=== PATIENT | female | born 1955 | race Caucasian/White ===

== ENCOUNTER 2017-02-06 12:48 | Outpatient (CLI) | payer BC | END 2017-02-06 12:49 | disposition home or self-care (01) | LOC: DI 12:48 | PROVIDERS: ATTEND Physician Assistant Medical | DX: I25.10 Atherosclerotic heart disease of native coronary artery without angina pectoris (principal) | CPT/HCPCS: 93306 ==

== ENCOUNTER 2017-02-08 11:26 | Outpatient (CLI) | payer BC ==
[2017-02-08 19:20] LABS: BASOPHILS # (AUTO) 0.1 10^3/uL (0.0-0.1); BASOPHILS % (AUTO) 0.6 %; EOSINOPHILS # (AUTO) 0.2 10^3/uL (0.0-0.7); EOSINOPHILS % (AUTO) 2.1 %; HCT - HEMATOCRIT 40.9 % (37.0-47.0); HGB - HEMOGLOBIN 13.7 g/dL (12.0-16.0); LYMPHOCYTES # (AUTO) 2.3 10^3/uL (1.5-3.5); LYMPHOCYTES % (AUTO) 21.5 %; MEAN CORPUSCULAR HEMOGLOBIN 30.2 pg (27.0-31.0); MEAN CORPUSCULAR HGB CONC 33.4 g/dL (32.0-36.0); MEAN CORPUSCULAR VOLUME 90.4 fL (81.0-99.0); MONOCYTES # (AUTO) 0.6 10^3/uL (0.0-1.0); MONOCYTES % (AUTO) 5.7 %; NEUTROPHILS # (AUTO) 7.6 10^3/uL (1.5-6.6); NEUTROPHILS % (AUTO) 70.1 %; NUCLEATED RED BLOOD CELLS AUTO 0.1 /100WBC; RED BLOOD COUNT 4.52 10^6/uL (4.20-5.40); RED CELL DISTRIBUTION WIDTH 13.8 % (12.0-15.0); UNCORRECTED WHITE BLOOD COUNT 10.9 x10^3/uL; WHITE BLOOD COUNT 10.9 x10^3/uL (4.8-10.8)
[2017-02-08 19:41] LABS: ALBUMIN/GLOBULIN RATIO 1.5 (1.0-2.2); BUN - BLOOD UREA NITROGEN 16 mg/dL (6-20); CALCIUM 9.4 mg/dL (8.5-10.3); CARBON DIOXIDE - CO2 28 mmol/L (21-32); CHLORIDE 104 mmol/L (101-111); CHOL/HDL RATIO 3.3 (<4.4); CHOLESTEROL 212 mg/dL; CREATININE 0.6 mg/dL (0.4-1.0); GFR - MDRD 102 (>89); GLUCOSE 110 mg/dL (70-100); HDL CHOLESTEROL 64 mg/dL; SODIUM 140 mmol/L (135-145); TOTAL PROTEIN 7.3 g/dL (6.7-8.2); TRIGLYCERIDES 101 mg/dL; VLDL CHOLESTEROL 20 mg/dL
== END 2017-02-08 11:27 | disposition home or self-care (01) ==
LOC: LAB.WCP 11:26
PROVIDERS: ATTEND Physician Assistant Medical
DX: Z51.81 Encounter for therapeutic drug level monitoring (principal)
CPT/HCPCS: 36415; 80053; 80061; 85025

== ENCOUNTER 2018-02-21 16:23 | Emergency (ER) | payer BC, OTHER ==
--- NOTE | 2018-02-21 17:01 | ED Physician Documentation ---
PD HPI HEENT - Stated complaint Stated Complaint: NOSE BLEED - Chief complaint Chief Complaint: Heent - History obtained from History obtained from: Patient - History of Present Illness Timing - onset: How many hours ago (2) Timing - details: Now resolved Location: Nose Similar symptoms before: Has not had sx before - Additional information Additional information: The patient is a 62-year-old female who presents with left anterior nosebleed that started about 2 hours prior to arrival. It stopped spontaneously at one point, but then resumed, prompting her to present to the emergency department. She denies any traumatic injury. She has had intermittent episodes of nose bleeding over the past 3 days. She has no history of nosebleeds prior to that time. She is not on anticoagulant medication. She does report that her nose has been very dry recently. Review of Systems Constitutional: denies: Fever Eyes: denies: Irritation Ears: denies: Ear pain Nose: reports: Epistaxis. denies: Congestion Throat: denies: Sore throat Cardiac: denies: Chest pain / pressure Respiratory: denies: Dyspnea GI: denies: Nausea, Vomiting Neurologic: denies: Headache PD PAST MEDICAL HISTORY - Past Medical History Cardiovascular: Other (V-fib cardiac arrest in 2013.) - Present Medications Home Medications: Ambulatory Orders Medication Instructions Recorded Confirmed No Known Home Medications [No 02/21/18 02/21/18 Known Home Medications] - Allergies Allergies/Adverse Reactions: Allergies Allergy/AdvReac Type Severity Reaction Status Date / Time No Known Drug Allergies Allergy Verified 02/21/18 16:31 - Social History Does the pt smoke?: No Smoking Status: Never smoker Does the pt have substance abuse?: No PD ED PE NORMAL - Vitals Vital signs reviewed: Yes (Borderline hypertension) - General General: Alert and oriented X 3, Well developed/nourished - HEENT HEENT: Atraumatic, EOMI, Ears normal, Pharynx benign, Other (Left anterior epistaxis with bleeding site at anterior nasal septum.) - Neck Neck: No adenopathy - Cardiac Cardiac: RRR - Respiratory Respiratory: No respiratory distress, Clear bilaterally - Derm Derm: No rash - Extremities Extremities: No edema - Neuro Neuro: Alert and oriented X 3, No motor deficit, Normal speech Results - Vitals Vitals: Oxygen O2 Source Room air Procedures - Epistaxis Site: Left, Anterior Preparation: Lidocaine, Clamp / pressure applied Treatment: Silver Nitrate Other: Observed - no bleeding, Pt tolerated well, O2 sat WNL PD MEDICAL DECISION MAKING - ED course Complexity details: reviewed results, re-evaluated patient, considered differential, d/w patient, d/w family ED course: The patient's presentation is significant for left anterior epistaxis. She is not on anticoagulant medication, and there has been no history of trauma. Treatment in the emergency department included silver nitrate cautery after topical anesthetic using 1% lidocaine with epinephrine. The patient was then observed in the emergency department and experienced no further episodes of bleeding. I discussed with her and her the expected course of healing, methods to present further episodes, as well as potentially worrisome signs or symptoms that should prompt reevaluation in the emergency department. - Sepsis Event Vital Signs: Oxygen O2 Source Room air Departure - Departure Disposition: 01 Home, Self Care Clinical Impression: Anterior epistaxis Condition: Stable Instructions: ED Nosebleed Follow-Up: Lyric Melvin MD [Primary Care Provider] - Comments: Avoid aspirin for the next 5 days. Apply antibiotic ointment to your nasal mucosa twice daily. Return to the emergency department if you develop recurrent nasal bleeding, especially but does not stop after applying pressure to the site of your nose for 10-15 minutes. Discharge Date/Time: 02/21/18 17:57
[2018-02-21 17:57] VITALS: BP 132/78
== END 2018-02-21 17:57 | disposition home or self-care (01) ==
LOC: ED 16:23
DX: R04.0 Epistaxis (principal)
CPT/HCPCS: 30901; 99282; 99283

== ENCOUNTER 2018-07-23 12:11 | Outpatient (CLI) | payer BC, OTHER ==
[2018-07-23 18:59] LABS: BASOPHILS # (AUTO) 0.1 10^3/uL (0.0-0.1); BASOPHILS % (AUTO) 0.8 %; EOSINOPHILS # (AUTO) 0.2 10^3/uL (0.0-0.7); EOSINOPHILS % (AUTO) 3.7 %; HGB - HEMOGLOBIN 14.1 g/dL (12.0-16.0); LYMPHOCYTES % (AUTO) 31.5 %; MEAN CORPUSCULAR HEMOGLOBIN 29.6 pg (27.0-31.0); MEAN CORPUSCULAR HGB CONC 32.5 g/dL (32.0-36.0); MEAN CORPUSCULAR VOLUME 91.2 fL (81.0-99.0); MEAN PLATELET VOLUME 9.2 fL (7.9-10.8); MONOCYTES # (AUTO) 0.5 10^3/uL (0.0-1.0); MONOCYTES % (AUTO) 7.1 %; NEUTROPHILS # (AUTO) 3.7 10^3/uL (1.5-6.6); NEUTROPHILS % (AUTO) 56.9 %; PLT - PLATELET COUNT 298 10^3/uL (130-450); RED BLOOD COUNT 4.76 10^6/uL (4.20-5.40); RED CELL DISTRIBUTION WIDTH 13.7 % (12.0-15.0); WHITE BLOOD COUNT 6.5 x10^3/uL (4.8-10.8)
[2018-07-23 19:19] LABS: ALBUMIN 4.3 g/dL (3.2-5.5); ALBUMIN/GLOBULIN RATIO 1.3 (1.0-2.2); ALKALINE PHOSPHATASE 61 IU/L (42-121); ALT ALANINE AMINOTRANSFERASE 16 IU/L (10-60); AST ASPARTATE AMINOTRANSFERASE 21 IU/L (10-42); BILIRUBIN,TOTAL 0.8 mg/dL (0.2-1.0); BUN - BLOOD UREA NITROGEN 11 mg/dL (6-20); CALCIUM 9.2 mg/dL (8.5-10.3); CARBON DIOXIDE - CO2 24 mmol/L (21-32); CHLORIDE 107 mmol/L (101-111); CHOL/HDL RATIO 4.4 (<4.4); CHOLESTEROL 245 mg/dL; CREATININE 0.6 mg/dL (0.4-1.0); GFR - MDRD 102 (>89); GLUCOSE 141 mg/dL (70-100); HB2 TOTAL 15.3 g/dL; HDL CHOLESTEROL 56 mg/dL; HEMOGLOBIN A1C 0.96 g/dL; HEMOGLOBIN A1C % 7.9 % (4.6-6.2); LDL CHOLESTEROL,CALCULATED 163 mg/dL; LDL/HDL RATIO 2.9 (<4.4); SODIUM 137 mmol/L (135-145); TOTAL PROTEIN 7.7 g/dL (6.7-8.2); VLDL CHOLESTEROL 26 mg/dL
== END 2018-07-23 23:59 | disposition home or self-care (01) ==
LOC: LAB.WCP 12:11
PROVIDERS: ATTEND Family Medicine
DX: E78.5 Hyperlipidemia, unspecified (principal); E11.9 Type 2 diabetes mellitus without complications; L65.9 Nonscarring hair loss, unspecified; I25.10 Atherosclerotic heart disease of native coronary artery without angina pectoris
CPT/HCPCS: 36415; 80053; 80061; 82043; 83036; 83721; 84443; 85025

== ENCOUNTER 2019-03-26 13:31 | Outpatient (CLI) | payer BC, OTHER ==
--- NOTE | 2019-03-27 08:43 | DEXA Report ---
Reason: OSTEOPOROSIS Procedure Date: 03/26/2019 Accession Number: [id number] / [id number] Procedure: DEX - Dexa Spine and/or Hip CPT Code: FULL RESULT: EXAM: Dexa Spine and/or Hip DATE: 03/26/2019 2:35 PM CLINICAL HISTORY: OSTEOPOROSIS TECHNIQUE: Dual energy x-ray absorptiometry (DXA) was performed on a [employer] System. Regions measured are the AP Spine, femoral neck, and if needed forearm. COMPARISON: None. In accordance with the International Society for Clinical Densitometry (ISCD) guidelines, data from previous exams may be reanalyzed using current recommendations and techniques. This is done to allow a more accurate basis for comparison with the current study. FINDINGS: The data for the lumbar spine is as follows: BMD (g/cm/cm) T-SCORE Z-SCORE REGION L1 0.939 -1.6 -0.3 L2 0.935 -2.2 -0.9 L3 0.961 -2.0 -0.7 L4 0.972 -1.9 -0.6 TOTAL 0.954 -1.9 -0.6 NOTE: All evaluable vertebrae are used for classification The data for the hip is as follows: BMD (g/cm/cm) T-SCORE Z-SCORE REGION Neck 0.700 -2.4 -1.1 TOTAL 0.767 -1.9 -0.9 NOTE: The femoral neck or total proximal femur, whichever is lowest, is used for classification. IMPRESSION: THE WHO CLASSIFICATION BASED ON THE INTERNATIONAL REFERENCE STANDARD IS OSTEOPENIA. THE FRACTURE RISK IS INCREASED. RECOMMENDATION: Patients with diagnosis of osteoporosis or osteopenia should have regular bone mineral density assessment. For those eligible for Medicare, routine testing is allowed once every 2 years. Testing frequency can be increased for patients who have rapidly progressing disease or for those who are receiving medical therapy to restore bone mass. COMMENT: World Health Organization (WHO) definitions for osteoporosis and osteopenia: NORMAL BMD: T-score at -1.0 or higher, fracture risk is low OSTEOPENIA BMD: T-score between -1.0 and -2.5, fracture risk is increased. OSTEOPOROSIS BMD: T-score at -2.5 or lower, fracture risk is high. National Osteoporosis Foundation recommends: 1. Obtain adequate dietary calcium (at least 1200 mg per day) and vitamin D (400-800 international units per day). 2. Participate, as appropriate, in regular weightbearing and muscle-strengthening exercise. 3. Avoid tobacco use and reduce alcohol and caffeine intake. 4. For more detailed information see the website at www.NOF.org.
== END 2019-03-26 13:32 | disposition home or self-care (01) ==
LOC: DI 13:31
PROVIDERS: ATTEND Family Medicine
DX: M85.89 Other specified disorders of bone density and structure, multiple sites (principal)
CPT/HCPCS: 77080

== ENCOUNTER 2019-04-02 08:00 | Outpatient (CLI) | payer BC, OTHER ==
[2019-04-02 13:19] LABS: HB2 TOTAL 14.3 g/dL; HEMOGLOBIN A1C 0.94 g/dL; HEMOGLOBIN A1C % 8.2 % (4.6-6.2)
[2019-04-02 13:25] LABS: ALBUMIN 4.1 g/dL (3.2-5.5); ALBUMIN/GLOBULIN RATIO 1.2 (1.0-2.2); ALKALINE PHOSPHATASE 58 IU/L (42-121); ALT ALANINE AMINOTRANSFERASE 15 IU/L (10-60); AST ASPARTATE AMINOTRANSFERASE 17 IU/L (10-42); BILIRUBIN,TOTAL 0.6 mg/dL (0.2-1.0); BUN - BLOOD UREA NITROGEN 10 mg/dL (6-20); CALCIUM 9.3 mg/dL (8.5-10.3); CARBON DIOXIDE - CO2 23 mmol/L (21-32); CHLORIDE 108 mmol/L (101-111); CHOL/HDL RATIO 3.8 (<4.4); CHOLESTEROL 206 mg/dL; CREATININE 0.6 mg/dL (0.4-1.0); GFR - MDRD 102 (>89); GLUCOSE 145 mg/dL (70-100); HDL CHOLESTEROL 54 mg/dL; LDL CHOLESTEROL,CALCULATED 138 mg/dL; LDL/HDL RATIO 2.6 (<4.4); SODIUM 140 mmol/L (135-145); TOTAL PROTEIN 7.5 g/dL (6.7-8.2); VLDL CHOLESTEROL 14 mg/dL
[2019-04-02 13:26] LABS: MICROALBUM/CREATININE RATIO,UR 5.1 ug/mg (<30.0); MICROALBUMIN,URINE 0.4 mg/dL (0-300.0)
== END 2019-04-02 23:59 | disposition home or self-care (01) ==
LOC: LAB.WCP 08:00
PROVIDERS: ATTEND Family Medicine
DX: E78.5 Hyperlipidemia, unspecified (principal); E11.9 Type 2 diabetes mellitus without complications; R41.3 Other amnesia
CPT/HCPCS: 36415; 80053; 80061; 82043; 82570; 83036; 83721; 84443

== ENCOUNTER 2021-09-29 15:23 | Outpatient (CLI) | payer BC, OTHER ==
--- NOTE | 2021-10-02 09:06 | DEXA Report ---
PROCEDURE: Dexa Spine and/or Hip INDICATIONS: POST MENOPAUSAL TECHNIQUE: Dual energy x-ray absorptiometry (DXA) was performed on a [employer] System. Regions measur ed are the AP Spine, femoral neck, and if needed forearm. COMPARISON: 03/26/2019. FINDINGS: L1 BMD: 0.917 L1 TScore: -1.8 L1 ZScore: -0.2 Lumbar Spine: Bone Mineral Density 0.954 g/cm/cm,T score -1.9, osteopenia. Unchanged from prior T score value of -1.9. Left Hip: Bone Mineral Density 0.783 g/cm/cm,T score -1.8, osteopenia. Similar to prior T score value of -1.9. Left Femoral Neck: Bone Mineral Density 0.725 g/cm/cm, T score -2.3, osteopenia. Similar to prior T score value of -2.4 . (T score greater or equal to -1.0: NORMAL) (T score from -1.1 to -2.4: OSTEOPENIA) (T score less than or equal to -2.5 to: OSTEOPOROSIS) Impression: 1. Osteopenia within the lumbar spine and left hip appear similar in density to the prior study. Patients with diagnosis of osteoporosis or osteopenia should have regular bone mineral density assess ment. For those eligible for Medicare, routine testing is allowed once every 2 years. Testing frequ ency can be increased for patients who have rapidly progressing disease or for those who are receivin g medical therapy to restore bone mass. Reviewed by: Johnathan Naylor MD on 10/02/2021 9:05 AM [facility] Approved by: Johnathan Naylor MD on 10/02/2021 9:05 AM PST Station ID: [id number]
== END 2021-09-29 15:24 | disposition home or self-care (01) ==
LOC: DI 15:23
PROVIDERS: ATTEND Student in an Organized Health Care Education/Training Program
DX: Z78.0 Asymptomatic menopausal state (principal); M85.89 Other specified disorders of bone density and structure, multiple sites

== ENCOUNTER 2021-10-31 10:33 | Outpatient (CLI) | payer BC, OTHER ==
--- NOTE | 2021-11-01 08:16 | Mammography Report ---
BILATERAL DIGITAL SCREENING MAMMOGRAM 3D/2D: 10/31/2021 CLINICAL: Routine screening. Comparison is made to exams dated: 03/26/2019 mammogram and 01/25/2015 mammogram - [facility]. There are scattered fibroglandular elements in both breasts. No significant masses, calcifications, or other findings are seen in either breast. There has been no significant interval change. IMPRESSION: NEGATIVE There is no mammographic evidence of malignancy. A 1 year screening mammogram is recommended. This exam was interpreted at Station ID: [id number]. NOTE: For mammograms, a report in lay terms will be sent to the patient. Approximately 15% of breast malignancies will not be visualized mammographically. In the management of a palpable breast mass, a negative mammogram must not discourage biopsy of a clinically suspicious lesion. Electronically Signed By: Johnathan Naylor M.D. ddp/penrad:10/31/2021 14:40:16 ACR BI-RADS Category 1: Negative 3341F PARENCHYMAL PATTERN: (A) - The breast(s) demonstrate(s) scattered fibroglandular densities. BI-RADS CATEGORY: (1) - 1 RECOMMENDATION: (ANNUAL) - Recommend routine annual screening mammography. [id number] 1 year screening LATERALITY: (B)
== END 2021-10-31 10:34 | disposition home or self-care (01) ==
LOC: DI.N 10:33
PROVIDERS: ATTEND Student in an Organized Health Care Education/Training Program
DX: Z12.31 Encounter for screening mammogram for malignant neoplasm of breast (principal)

== ENCOUNTER 2022-03-15 10:52 | Emergency (ER) | payer BC, OTHER ==
[2022-03-15 11:07] VITALS: BP 141/84
--- NOTE | 2022-03-15 11:22 | XRAY Report ---
PROCEDURE: Ankle 3 View LT INDICATIONS: Trauma TECHNIQUE: 3 views of the ankle were acquired. COMPARISON: None FINDINGS: Bones: Linear lucency obliquely traverses the distal fibula. Ankle mortise is normally aligned. No s uspicious bony lesions. Soft tissues: No tibiotalar joint effusion. Achilles tendon appears normal. IMPRESSION: Mildly displaced distal fibular fracture. Reviewed by: Joann Chavez MD on 03/15/2022 11:21 AM PDT Approved by: Joann Chavez MD on 03/15/2022 11:21 AM PDT Station ID: [id number]
--- NOTE | 2022-03-15 12:12 | ED Physician Documentation ---
History of Present Illness - Stated complaint Stated Complaint: GLF/ANKLE INJ - Chief complaint Chief Complaint: Trauma Ext - Additonal information Additional information: 66-year-old female presents emergency department for evaluation of left lateral ankle pain. Was working in her yard when she stepped off a concrete curb sustaining an inversion injury. Now painful and difficulty bearing weight. No history of previous injury. No other associated injury today Review of Systems Constitutional: reports: Reviewed and negative Nose: reports: Reviewed and negative Cardiac: reports: Reviewed and negative Respiratory: reports: Reviewed and negative Musculoskeletal: reports: Extremity pain Neurologic: reports: Reviewed and negative PD PAST MEDICAL HISTORY - Past Medical History Cardiovascular: Other (V-fib cardiac arrest in 2013.) - Present Medications Home Medications: Ambulatory Orders Medication Instructions Recorded Confirmed HYDROcod/ACETAM 5/325 [[place] 5/325] 1 tablet PO BID PRN #10 tablet 03/15/22 - Allergies Allergies/Adverse Reactions: Allergies Allergy/AdvReac Type Severity Reaction Status Date / Time No Known Drug Allergies Allergy Verified 03/15/22 11:06 - Social History Does the pt smoke?: No Smoking Status: Never smoker Does the pt have substance abuse?: No PD ED PE EXPANDED - General General: Alert, No acute distress, Well developed/nourished - Extremities Extremities: Left ankle (Tenderness of the distal fibula. Mild swelling no deformity. No tenderness medially or on the dorsum of the foot. No Achilles pain. Reduced range of motion secondary to pain. 2+ DP pulse) Results - Vitals Vitals: Vital Signs - 24 hr 03/15/22 11:01 Temperature 36.5 C Heart Rate 66 Respiratory 14 Rate Blood Pressure 141/84 H O2 Saturation 98 Oxygen O2 Source Room air - Rads (name of study) left ankle Radiology: Final report received (Mildly displaced distal fibular fracture) PD MEDICAL DECISION MAKING - ED course Complexity details: considered differential, d/w patient ED course: 66-year-old female presents emergency department for evaluation of left ankle pain after inversion injury today. She has moderate tenderness on the distal lateral malleoli are area. X-ray confirms a mildly displaced fibular fracture. She is placed in a stirrup splint. Crutches. Recommend ibuprofen limited amount of hydrocodone for pain. Emergent worrisome return precautions were discussed. Advised that she should have follow-up with orthopedics at which time splinting can likely be removed and placed in a walker boot. I examined the leg post splinting CMST is preserved. Patient feels comfortable in splint I am prescribing a short course of short-acting opioid pain medication for this patient. I have reviewed the patients [employer] and no concerning findings were noted. I have discussed that the opioids are for short term therapy only, and will not be refilled from the ED. Departure - Departure Disposition: 01 Home, Self Care Clinical Impression: Fracture of distal end of fibula Qualifiers: Encounter type: initial encounter Fracture type: closed Fracture morphology: unspecified fracture morphology Laterality: left Qualified Code(s): S82.832A - Other fracture of upper and lower end of left fibula, initial encounter for closed fracture Condition: Stable Record reviewed to determine appropriate education?: Yes Instructions: ED Fx Lower Ext, ED Cast Care Fiberglass Follow-Up: Vince Griffin MD [Provider Admit Priv/Credential] - Prescriptions: HYDROcod/ACETAM 5/325 [[place] 5/325] 1 tablet PO BID PRN #10 tablet PRN Reason: Pain Comments: Ximena unfortunately when you twisted your ankle this morning you did fracture the distal end of your fibula. These types of fractures are almost universally managed nonoperatively. Initially we placed the fracture in a splint to stabilize and then follow-up with orthopedics they can make the determination of if you can be placed into a walking boot. Your fiberglass splint cannot get wet so you must use a bag over the leg when showering. In general use the crutches for ambulation. I would like you to take 600 mg of ibuprofen with food 2-3 times a day for discomfort. For more severe pain I prescribing a limited amount of [place]. This prescription has been sent to [facility]. In order to be seen by orthopedic physicians in follow-up, your primary care provider will need to make a referral. I have given you the name of our local orthopedic physician who can typically see patients such as yourself and follow- up. You have any concerns that the splint is too tight, you have numbness or ting ling in your foot, unexplained fevers or severe pain then please return to the ER for repeat evaluation. I am prescribing a short course of narcotic pain medication for you. These are potentially dangerous and addictive medications that should be used carefully. These medications may constipate you. Take an iooi-mlw-halfhfg stool softener (docusate) twice daily with plenty of water while taking these medications. If you go 24 hours without a bowel movement, take qhqa-lts-wuxzjdo miralax, per package instructions. Do not drink or drive while taking these medications. If you received narcotic or sedating medications while in the emergency department, do not drive for 24 hours. Store this medication in a safe, secure place and out of reach of children. It is a violation of federal law to give or sell this medication to another person or to use in a manner other than prescribed. The ED will not refill narcotic prescriptions, including prescriptions lost or stolen. To dispose of unwanted medications: 1. [facility] at [address] in [place] has a medication drop box. They accept prescription medications (in pill form) Saturday through Saturday 9:00 a.m. to 5:00 p.m. 2. The [facility] [employer] accepts prescription medications (in pill form only) for disposal year round. Call for more information. 3. Contact the [facility] for the next [facility] sponsored prescription drug collection event. , [phone], or [phone]; Note that many narcotic pain relievers also contain Tylenol/acetaminophen. Please ensure that your total dose of acetaminophen from all sources does not exceed 3 g (3000 mg) per day.
[2022-03-15] MEDS ORDERED: KETOROLAC 30 MG/ML VIAL IM STA (12:22)
== END 2022-03-15 13:19 | disposition home or self-care (01) ==
LOC: ED 10:52
DX: S82.832A Other fracture of upper and lower end of left fibula, initial encounter for closed fracture (principal); X50.1XXA Overexertion from prolonged static or awkward postures, initial encounter
CPT/HCPCS: 96372; 99283

== ENCOUNTER 2022-04-17 08:00 | Outpatient (CLI) | payer BC, OTHER ==
--- NOTE | 2022-04-17 20:25 | XRAY Report ---
PROCEDURE: Ankle 3 View LT INDICATIONS: ANKLE FX TECHNIQUE: 3 views of the ankle were acquired. COMPARISON: 03/27/2022 FINDINGS: Bones: There is interval healing at distal fibular shaft fracture site with partial bony union and ca llus formation. Overall ankle alignment is unchanged from prior study. No new fracture or dislocation .. Ankle mortise is normally aligned. No suspicious bony lesions. Soft tissues: No tibiotalar joint effusion. Achilles tendon appears normal. IMPRESSION: Interval further healing at distal fibular shaft fracture site with stable ankle alignme nt. No new fracture or dislocation. Reviewed by: Rafael Tavera MD on 04/17/2022 8:23 PM PDT Approved by: Rafael Tavera MD on 04/17/2022 8:23 PM PDT Station ID: [id number]
== END 2022-04-17 23:59 | disposition home or self-care (01) ==
LOC: DI.WOS 08:00
PROVIDERS: ATTEND Orthopaedic Surgery
DX: S82.832D Other fracture of upper and lower end of left fibula, subsequent encounter for closed fracture with routine healing (principal)

== ENCOUNTER 2022-05-15 08:00 | Outpatient (CLI) | payer BC, OTHER ==
--- NOTE | 2022-05-15 14:48 | XRAY Report ---
PROCEDURE: Ankle 3 View LT INDICATIONS: LEFT ANKLE FRACTURE TECHNIQUE: 3 views of the ankle were acquired. COMPARISON: None FINDINGS: Bones: There is continued remodeling of the distal fibular fracture. Fracture line is no longer evide nt, and there is increasing sclerosis. Ankle mortise is normally aligned. No suspicious bony lesion s. Soft tissues: No tibiotalar joint effusion. Achilles tendon appears normal. IMPRESSION: Healing left distal fibular fracture Reviewed by: John Torres MD on 05/15/2022 1:47 PM [facility] Approved by: John Torres MD on 05/15/2022 1:47 PM [facility] Station ID: [id number]
== END 2022-05-15 23:59 | disposition home or self-care (01) ==
LOC: DI.WOS 08:00
PROVIDERS: ATTEND Orthopaedic Surgery
DX: S82.832D Other fracture of upper and lower end of left fibula, subsequent encounter for closed fracture with routine healing (principal)